=== PATIENT | female | born 1945 | race Caucasian/White ===

== ENCOUNTER 2021-09-06 09:39 | Inpatient (IN) | payer MEDICARE ==
[2021-09-06] MEDS ORDERED: Non-Formulary Item 1 EACH (Acetaminophen [Tylenol] 325 MG Capsule) PO PRN (15:02)
[2021-09-06] MEDS ORDERED: Apixaban 5 MG TAB PO SCH (21:00)
[2021-09-06] MEDS ORDERED: Amiodarone 200 MG TAB PO SCH (21:00)
[2021-09-06] MEDS: Apixaban 5 MG TAB PO SCH (22:17)
[2021-09-06] MEDS: Sulfameth/Trimethoprim DS 800-160mg TAB PO SCH (22:17)
[2021-09-06] MEDS: Famotidine 20 MG TAB PO SCH (22:17)
[2021-09-07 04:38] LABS: #Eosinphils 0.1 thou/uL (0.0-0.7); #Lymphocytes 1.1 thou/uL (1.20-3.40); #Monocytes 0.7 thou/uL (0.11-0.59); #Neutrophils 5.4 thou/uL (1.40-6.50); %Basophils 0.5 % (0.0-1.0); %Eosinophils 1.8 % (0.0-10.0); %Lymphocytes 15.3 % (21.0-51.0); %Monocytes 9.8 % (0.0-10.0); %Neutrophils 72.5 % (42.0-75.0); Hemoglobin 15.4 g/dL (12.0-16.0); Mean Corpuscular HGB CONC 32.9 g/dL (32.0-36.0); Mean Corpuscular Hemoglobin 32.4 pg (27.0-31.0); Mean Corpuscular Volume 98.4 fL (78.0-98.0); Mean Platelet Volume 6.7 fL (7.4-10.4); Platelet Count 332 thou/uL (130-400); RBC Distribution Width 12.1 % (11.5-14.5); Red Blood Cell (RBC) Count 4.75 mill/uL (4.20-5.40); White Blood Cell (WBC) Count 7.4 thou/uL (4.8-10.8)
[2021-09-07 05:09] LABS: ALT (SGPT) 54 U/L (8-55); AST (SGOT) 50 U/L (5-34); Albumin 3.6 g/dL (3.4-4.8); Alkaline Phosphatase 83 U/L (40-110); Anion Gap 13 mmol/L (10-20); BUN (Urea Nitrogen) 21 mg/dL (9.8-20.1); Bilirubin, Total 0.5 mg/dL (0.2-1.2); Calc. Creatinine Clearance 39 mL/min (70-130); Calcium 9.6 mg/dL (7.8-10.44); Carbon Dioxide 23 mmol/L (23-31); Chloride 103 mmol/L (98-107); Globulin 3.5 g/dL (2.4-3.5); Glucose 86 mg/dL (83-110); Potassium 4.5 mmol/L (3.5-5.1); Protein, Total 7.1 g/dL (5.8-8.1); Sodium 134 mmol/L (136-145)
[2021-09-07] MEDS ORDERED: Potassium Chloride 20 MEQ TAB PO SCH (08:00)
[2021-09-07] MEDS ORDERED: Meclizine HCl 25 MG TAB PO SCH (09:00)
[2021-09-07] MEDS: Sulfameth/Trimethoprim DS 800-160mg TAB PO SCH ×2 (09:20→20:50)
[2021-09-07] MEDS: Metolazone 5 MG TAB PO SCH ×2 (09:21→09:28)
[2021-09-07] MEDS: Apixaban 5 MG TAB PO SCH ×2 (09:21→20:49)
[2021-09-07] MEDS: Furosemide 40 MG TAB PO SCH (09:21)
[2021-09-07] MEDS ORDERED: Pepto Bismol Chew TAB PO SCH (18:00)
[2021-09-07] MEDS: Famotidine 20 MG TAB PO SCH (20:49)
[2021-09-08] MEDS ORDERED: Pepto Bismol Chew TAB PO SCH ×2 (04:30→12:30)
[2021-09-08] MEDS: Polyethylene Glycol 3350 17 GM Packet PO SCH (08:49)
[2021-09-08] MEDS: Apixaban 5 MG TAB PO SCH ×2 (08:50→19:54)
[2021-09-08] MEDS: Sulfameth/Trimethoprim DS 800-160mg TAB PO SCH ×2 (08:50→19:55)
[2021-09-08] MEDS: Furosemide 40 MG TAB PO SCH (08:50)
[2021-09-08] MEDS: Metolazone 5 MG TAB PO SCH (08:51)
[2021-09-08] MEDS: Famotidine 20 MG TAB PO SCH (19:54)
[2021-09-08] MEDS: Pepto Bismol Chew TAB PO PRN (19:55)
[2021-09-09] MEDS: Pepto Bismol Chew TAB PO PRN ×3 (02:48→20:56)
[2021-09-09 04:42] LABS: #Eosinphils 0.1 thou/uL (0.0-0.7); #Monocytes 0.7 thou/uL (0.11-0.59); #Neutrophils 4.9 thou/uL (1.40-6.50); %Basophils 0.1 % (0.0-1.0); %Eosinophils 1.8 % (0.0-10.0); %Lymphocytes 15.2 % (21.0-51.0); %Monocytes 9.8 % (0.0-10.0); %Neutrophils 73.1 % (42.0-75.0); Hemoglobin 16.2 g/dL (12.0-16.0); Mean Corpuscular HGB CONC 32.3 g/dL (32.0-36.0); Mean Corpuscular Hemoglobin 31.6 pg (27.0-31.0); Mean Corpuscular Volume 97.6 fL (78.0-98.0); Mean Platelet Volume 6.8 fL (7.4-10.4); Platelet Count 326 thou/uL (130-400); RBC Distribution Width 12.4 % (11.5-14.5); Red Blood Cell (RBC) Count 5.13 mill/uL (4.20-5.40); White Blood Cell (WBC) Count 6.7 thou/uL (4.8-10.8)
[2021-09-09 04:59] LABS: ALT (SGPT) 77 U/L (8-55); AST (SGOT) 53 U/L (5-34); Albumin 3.6 g/dL (3.4-4.8); Alkaline Phosphatase 87 U/L (40-110); Anion Gap 16 mmol/L (10-20); BUN (Urea Nitrogen) 16 mg/dL (9.8-20.1); Bilirubin, Total 0.6 mg/dL (0.2-1.2); Calc. Creatinine Clearance 41 mL/min (70-130); Calcium 9.5 mg/dL (7.8-10.44); Carbon Dioxide 17 mmol/L (23-31); Chloride 101 mmol/L (98-107); Globulin 3.6 g/dL (2.4-3.5); Glucose 85 mg/dL (83-110); Potassium 4.4 mmol/L (3.5-5.1); Protein, Total 7.2 g/dL (5.8-8.1); Sodium 130 mmol/L (136-145)
[2021-09-09 05:24] LABS: Free T4 (Free Thyroxine) 1.13 ng/dL (0.70-1.48)
[2021-09-09] MEDS ORDERED: Lactated Ringer's 500 ML IV SCH (08:45)
[2021-09-09] MEDS: Amiodarone 200 MG TAB PO SCH (09:23)
[2021-09-09] MEDS: Polyethylene Glycol 3350 17 GM Packet PO SCH (09:23)
[2021-09-09] MEDS: Apixaban 5 MG TAB PO SCH ×2 (09:24→20:57)
[2021-09-09] MEDS: Furosemide 40 MG TAB PO SCH (09:24)
[2021-09-09] MEDS: Sulfameth/Trimethoprim DS 800-160mg TAB PO SCH ×2 (09:24→20:57)
[2021-09-09] MEDS: Metolazone 5 MG TAB PO SCH (09:30)
[2021-09-09] MEDS: Famotidine 20 MG TAB PO SCH (20:57)
[2021-09-10 04:40] LABS: Anion Gap 14 mmol/L (10-20); BUN (Urea Nitrogen) 17 mg/dL (9.8-20.1); Calc. Creatinine Clearance 35 mL/min (70-130); Calcium 9.3 mg/dL (7.8-10.44); Carbon Dioxide 25 mmol/L (23-31); Chloride 96 mmol/L (98-107); Glucose 83 mg/dL (83-110); Potassium 4.3 mmol/L (3.5-5.1); Sodium 131 mmol/L (136-145)
[2021-09-10] MEDS: Amiodarone 200 MG TAB PO SCH (09:02)
[2021-09-10] MEDS: Furosemide 40 MG TAB PO SCH (09:03)
[2021-09-10] MEDS: Polyethylene Glycol 3350 17 GM Packet PO SCH (09:03)
[2021-09-10] MEDS: Sulfameth/Trimethoprim DS 800-160mg TAB PO SCH ×2 (09:03→20:30)
[2021-09-10] MEDS: Apixaban 5 MG TAB PO SCH ×2 (09:03→20:30)
[2021-09-10] MEDS: Metolazone 5 MG TAB PO SCH (09:03)
[2021-09-10] MEDS: Pepto Bismol Chew TAB PO PRN ×2 (09:08→20:32)
[2021-09-10] MEDS: Meclizine HCl 25 MG TAB PO PRN (09:12)
[2021-09-10] MEDS ORDERED: Docusate 100 MG CAP PO PRN (19:48)
[2021-09-10] MEDS: Famotidine 20 MG TAB PO SCH (20:29)
[2021-09-11] MEDS: Polyethylene Glycol 3350 17 GM Packet PO SCH (08:34)
[2021-09-11] MEDS: Amiodarone 200 MG TAB PO SCH (08:34)
[2021-09-11] MEDS: Apixaban 5 MG TAB PO SCH ×2 (08:34→20:39)
[2021-09-11] MEDS: Docusate 100 MG CAP PO SCH (08:34)
[2021-09-11] MEDS: Furosemide 40 MG TAB PO SCH (08:35)
[2021-09-11] MEDS: Acetaminophen 325 MG TAB PO PRN ×2 (08:35→15:31)
[2021-09-11] MEDS: Meclizine HCl 25 MG TAB PO PRN (08:48)
[2021-09-11] MEDS ORDERED: Metolazone 5 MG TAB PO SCH (09:00)
[2021-09-11] MEDS ORDERED: Metolazone 2.5 MG TAB PO SCH (09:00)
[2021-09-11 09:02] LABS: Anion Gap 15 mmol/L (10-20); BUN (Urea Nitrogen) 14 mg/dL (9.8-20.1); Calc. Creatinine Clearance 38 mL/min (70-130); Calcium 9.5 mg/dL (7.8-10.44); Carbon Dioxide 24 mmol/L (23-31); Chloride 95 mmol/L (98-107); Glucose 83 mg/dL (83-110); Potassium 4.2 mmol/L (3.5-5.1); Sodium 130 mmol/L (136-145)
[2021-09-11] MEDS: Pepto Bismol Chew TAB PO PRN ×2 (13:02→20:45)
[2021-09-11] MEDS: Famotidine 20 MG TAB PO SCH (20:40)
[2021-09-12 05:48] LABS: Anion Gap 16 mmol/L (10-20); BUN (Urea Nitrogen) 17 mg/dL (9.8-20.1); Calc. Creatinine Clearance 37 mL/min (70-130); Calcium 9.4 mg/dL (7.8-10.44); Carbon Dioxide 23 mmol/L (23-31); Chloride 93 mmol/L (98-107); Glucose 82 mg/dL (83-110); Potassium 4.1 mmol/L (3.5-5.1); Sodium 128 mmol/L (136-145)
[2021-09-12] MEDS: Docusate 100 MG CAP PO SCH (09:01)
[2021-09-12] MEDS: Furosemide 40 MG TAB PO SCH (09:01)
[2021-09-12] MEDS: Polyethylene Glycol 3350 17 GM Packet PO SCH (09:01)
[2021-09-12] MEDS: Apixaban 5 MG TAB PO SCH ×2 (09:01→21:05)
[2021-09-12] MEDS: Amiodarone 200 MG TAB PO SCH (09:01)
[2021-09-12] MEDS: Meclizine HCl 25 MG TAB PO PRN (09:05)
[2021-09-12] MEDS: Pepto Bismol Chew TAB PO PRN ×2 (09:05→21:06)
[2021-09-12] MEDS ORDERED: Lactated Ringer's 500 ML IV SCH (09:15)
[2021-09-12] MEDS: Acetaminophen 325 MG TAB PO PRN (09:34)
[2021-09-12 16:19] LABS: SARS-CoV-2 PCR by NAA Not Detected (NotDetected)
[2021-09-12] MEDS: Cepastat Lozenges 1 LOZ PO PRN ×2 (17:26→21:06)
[2021-09-12] MEDS: Famotidine 20 MG TAB PO SCH (21:05)
[2021-09-13 07:20] LABS: Anion Gap 14 mmol/L (10-20); BUN (Urea Nitrogen) 15 mg/dL (9.8-20.1); Calc. Creatinine Clearance 34 mL/min (70-130); Calcium 9.2 mg/dL (7.8-10.44); Carbon Dioxide 27 mmol/L (23-31); Chloride 88 mmol/L (98-107); Glucose 88 mg/dL (83-110); Potassium 3.1 mmol/L (3.5-5.1); Sodium 126 mmol/L (136-145)
[2021-09-13] MEDS: Furosemide 40 MG TAB PO SCH (08:16)
[2021-09-13] MEDS: Apixaban 5 MG TAB PO SCH ×2 (08:16→20:20)
[2021-09-13] MEDS: Amiodarone 200 MG TAB PO SCH (08:16)
[2021-09-13] MEDS: Docusate 100 MG CAP PO SCH (08:16)
[2021-09-13] MEDS: Acetaminophen 325 MG TAB PO PRN ×3 (08:17→20:26)
[2021-09-13] MEDS: Polyethylene Glycol 3350 17 GM Packet PO SCH (08:17)
[2021-09-13] MEDS: Meclizine HCl 25 MG TAB PO PRN (08:19)
[2021-09-13] MEDS: Pepto Bismol Chew TAB PO PRN ×2 (12:32→20:21)
[2021-09-13] MEDS: Famotidine 20 MG TAB PO SCH (20:20)
[2021-09-13] MEDS: Cepastat Lozenges 1 LOZ PO PRN (20:21)
[2021-09-14 08:04] LABS: Anion Gap 14 mmol/L (10-20); BUN (Urea Nitrogen) 19 mg/dL (9.8-20.1); Calc. Creatinine Clearance 30 mL/min (70-130); Calcium 9.3 mg/dL (7.8-10.44); Carbon Dioxide 28 mmol/L (23-31); Chloride 88 mmol/L (98-107); Glucose 87 mg/dL (83-110); Potassium 3.1 mmol/L (3.5-5.1); Sodium 127 mmol/L (136-145)
[2021-09-14] MEDS ORDERED: Potassium Chloride 20 MEQ TAB PO SCH (08:45)
[2021-09-14] MEDS: Polyethylene Glycol 3350 17 GM Packet PO SCH (09:13)
[2021-09-14] MEDS: Docusate 100 MG CAP PO SCH (09:13)
[2021-09-14] MEDS: Amiodarone 200 MG TAB PO SCH (09:14)
[2021-09-14] MEDS: Apixaban 5 MG TAB PO SCH ×2 (09:15→20:45)
[2021-09-14] MEDS: Furosemide 40 MG TAB PO SCH (09:15)
[2021-09-14] MEDS: Pepto Bismol Chew TAB PO PRN ×2 (09:16→21:53)
[2021-09-14] MEDS: Acetaminophen 325 MG TAB PO PRN (09:35)
[2021-09-14] MEDS: Meclizine HCl 25 MG TAB PO PRN (09:39)
[2021-09-14] MEDS: Famotidine 20 MG TAB PO SCH (20:44)
[2021-09-14] MEDS: Cepastat Lozenges 1 LOZ PO PRN (21:54)
[2021-09-15] MEDS ORDERED: Potassium Chloride 20 MEQ TAB PO SCH (08:00)
[2021-09-15 08:24] LABS: Anion Gap 15 mmol/L (10-20); BUN (Urea Nitrogen) 23 mg/dL (9.8-20.1); Calc. Creatinine Clearance 35 mL/min (70-130); Calcium 9.6 mg/dL (7.8-10.44); Carbon Dioxide 30 mmol/L (23-31); Chloride 88 mmol/L (98-107); Glucose 94 mg/dL (83-110); Potassium 3.5 mmol/L (3.5-5.1); Sodium 129 mmol/L (136-145)
[2021-09-15] MEDS: Polyethylene Glycol 3350 17 GM Packet PO SCH (08:55)
[2021-09-15] MEDS: Furosemide 40 MG TAB PO SCH (08:55)
[2021-09-15] MEDS: Docusate 100 MG CAP PO SCH (08:55)
[2021-09-15] MEDS: Amiodarone 200 MG TAB PO SCH (08:55)
[2021-09-15] MEDS: Apixaban 5 MG TAB PO SCH ×2 (08:56→20:05)
[2021-09-15] MEDS: Meclizine HCl 25 MG TAB PO PRN (09:05)
[2021-09-15 14:59] VITALS: BMI 24.1
[2021-09-15] MEDS: Famotidine 20 MG TAB PO SCH (20:04)
[2021-09-15] MEDS: Cepastat Lozenges 1 LOZ PO PRN (20:05)
[2021-09-15 21:51] LABS: SARS-CoV-2 PCR by NAA Not Detected (NotDetected)
[2021-09-16 06:36] LABS: Anion Gap 15 mmol/L (10-20); BUN (Urea Nitrogen) 23 mg/dL (9.8-20.1); Calc. Creatinine Clearance 39 mL/min (70-130); Calcium 9.4 mg/dL (7.8-10.44); Carbon Dioxide 28 mmol/L (23-31); Chloride 90 mmol/L (98-107); Glucose 97 mg/dL (83-110); Potassium 3.6 mmol/L (3.5-5.1); Sodium 129 mmol/L (136-145)
[2021-09-16] MEDS ORDERED: Polyethylene Glycol 3350 17 GM Packet PO PRN (08:06)
[2021-09-16] MEDS ORDERED: Docusate 100 MG CAP PO PRN (08:06)
[2021-09-16] MEDS: Amiodarone 200 MG TAB PO SCH (08:44)
[2021-09-16] MEDS: Furosemide 40 MG TAB PO SCH (08:44)
[2021-09-16] MEDS: Meclizine HCl 25 MG TAB PO PRN (08:44)
[2021-09-16] MEDS: Apixaban 5 MG TAB PO SCH ×2 (08:44→20:12)
[2021-09-16] MEDS: Potassium Chloride 20 MEQ TAB PO SCH (08:44)
[2021-09-16] MEDS: Pepto Bismol Chew TAB PO PRN ×2 (10:23→20:49)
[2021-09-16] MEDS: Famotidine 20 MG TAB PO SCH (20:12)
[2021-09-16] MEDS: Cepastat Lozenges 1 LOZ PO PRN (20:12)
[2021-09-17] MEDS: Amiodarone 200 MG TAB PO SCH (09:13)
[2021-09-17] MEDS: Furosemide 40 MG TAB PO SCH (09:14)
[2021-09-17] MEDS: Meclizine HCl 25 MG TAB PO PRN (09:14)
[2021-09-17] MEDS: Apixaban 5 MG TAB PO SCH ×2 (09:14→20:17)
[2021-09-17] MEDS: Pepto Bismol Chew TAB PO PRN ×2 (11:17→20:48)
[2021-09-17] MEDS: Famotidine 20 MG TAB PO SCH (20:17)
[2021-09-17] MEDS: Cepastat Lozenges 1 LOZ PO PRN (20:48)
[2021-09-18] MEDS: Potassium Chloride 20 MEQ TAB PO SCH (08:31)
[2021-09-18] MEDS: Apixaban 5 MG TAB PO SCH ×2 (08:32→20:42)
[2021-09-18] MEDS: Meclizine HCl 25 MG TAB PO PRN (08:32)
[2021-09-18] MEDS: Amiodarone 200 MG TAB PO SCH (08:32)
[2021-09-18] MEDS: Furosemide 40 MG TAB PO SCH (08:32)
[2021-09-18] MEDS: Pepto Bismol Chew TAB PO PRN ×2 (08:33→20:41)
[2021-09-18] MEDS: Cepastat Lozenges 1 LOZ PO PRN ×2 (08:39→20:41)
[2021-09-18] MEDS: Acetaminophen 325 MG TAB PO PRN (12:00)
[2021-09-18] MEDS: Famotidine 20 MG TAB PO SCH (20:42)
[2021-09-19] MEDS: Apixaban 5 MG TAB PO SCH ×2 (08:16→19:37)
[2021-09-19] MEDS: Amiodarone 200 MG TAB PO SCH (08:16)
[2021-09-19] MEDS: Furosemide 40 MG TAB PO SCH (08:17)
[2021-09-19] MEDS: Meclizine HCl 25 MG TAB PO PRN (08:23)
[2021-09-19] MEDS: hydrOXYzine 10 MG TAB PO PRN ×2 (11:24→19:37)
[2021-09-19] MEDS: Famotidine 20 MG TAB PO SCH (19:37)
[2021-09-20] MEDS: Amiodarone 200 MG TAB PO SCH (08:37)
[2021-09-20] MEDS: Potassium Chloride 20 MEQ TAB PO SCH (08:37)
[2021-09-20] MEDS: Meclizine HCl 25 MG TAB PO PRN (08:37)
[2021-09-20] MEDS: Furosemide 40 MG TAB PO SCH (08:37)
[2021-09-20] MEDS: Apixaban 5 MG TAB PO SCH ×2 (08:37→20:57)
[2021-09-20] MEDS: Acetaminophen 325 MG TAB PO PRN (14:44)
[2021-09-20] MEDS: Famotidine 20 MG TAB PO SCH (20:57)
[2021-09-20] MEDS: Cepastat Lozenges 1 LOZ PO PRN (21:00)
[2021-09-21] MEDS: Amiodarone 200 MG TAB PO SCH (08:31)
[2021-09-21] MEDS: Apixaban 5 MG TAB PO SCH (08:31)
[2021-09-21] MEDS: Furosemide 40 MG TAB PO SCH (08:32)
[2021-09-21] MEDS: Meclizine HCl 25 MG TAB PO PRN (08:32)
[2021-09-21] MEDS: Cepastat Lozenges 1 LOZ PO PRN (08:46)
[2021-09-21] MEDS: Acetaminophen 325 MG TAB PO PRN ×2 (09:52→15:01)
[2021-09-21 09:59] VITALS: BP 132/79; TEMP 97.6
[2021-09-21] MEDS ORDERED: Sodium Chloride 1 GM TAB PO SCH (12:00)
== END 2021-09-21 15:53 | DRG 309 ==
LOC: 2NO 09:39 → OBSVTOIN 12:23 → T4-A 09-14 11:43
PROVIDERS: ADMIT Internal Medicine; ATTEND Internal Medicine
DX: R00.1 Bradycardia, unspecified (principal); N39.0 Urinary tract infection, site not specified; N17.9 Acute kidney failure, unspecified; I50.32 Chronic diastolic (congestive) heart failure; E87.1 Hypo-osmolality and hyponatremia; I13.0 Hypertensive heart and chronic kidney disease with heart failure and stage 1 through stage 4 chronic kidney disease, or unspecified chronic kidney disease; I48.20 Chronic atrial fibrillation, unspecified; N18.31 Chronic kidney disease, stage 3a; I95.1 Orthostatic hypotension; M41.9 Scoliosis, unspecified; E87.5 Hyperkalemia; Z20.822 Contact with and (suspected) exposure to COVID-19; E87.6 Hypokalemia; R42 Dizziness and giddiness; B96.4 Proteus (mirabilis) (morganii) as the cause of diseases classified elsewhere; T44.7X5A Adverse effect of beta-adrenoreceptor antagonists, initial encounter; R53.81 Other malaise; F41.9 Anxiety disorder, unspecified; Z88.6 Allergy status to analgesic agent; Z88.5 Allergy status to narcotic agent; Z88.8 Allergy status to other drugs, medicaments and biological substances; Z79.899 Other long term (current) drug therapy; Z79.01 Long term (current) use of anticoagulants
CPT/HCPCS: 36415; 80048; 80053; 82274; 83930; 83935; 84300; 84439; 84481; 85025; 93005; 93010; 93306; J7120; U0003; U0005